=== PATIENT | male | born 1990 | race African-American/Black ===

== ENCOUNTER 2020-03-14 16:30 | Emergency (ER) | payer SELFPAY ==
[~2020-03-14] VITALS: Ht 172.7 cm; Wt 79.4 kg
== END 2020-03-14 18:27 | disposition home or self-care (01) ==
LOC: ED 16:30
DX: S29.012A Strain of muscle and tendon of back wall of thorax, initial encounter (principal); X50.9XXA Other and unspecified overexertion or strenuous movements or postures, initial encounter; F17.200 Nicotine dependence, unspecified, uncomplicated
CPT/HCPCS: 72070; 99283-25

== ENCOUNTER 2022-04-24 12:51 | Emergency (ER) | payer SELFPAY ==
[~2022-04-24] VITALS: Ht 172.7 cm; Wt 79.4 kg
== END 2022-04-24 16:53 | disposition home or self-care (01) ==
LOC: ED 12:51
DX: I10 Essential (primary) hypertension (principal); F17.200 Nicotine dependence, unspecified, uncomplicated
CPT/HCPCS: 99283

== ENCOUNTER 2022-07-24 16:37 | Emergency (ER) | payer OTHER ==
[~2022-07-24] VITALS: Ht 172.7 cm; Wt 83.5 kg
== END 2022-07-24 19:32 | disposition home or self-care (01) ==
LOC: ED 16:37
DX: T62.8X1A Toxic effect of other specified noxious substances eaten as food, accidental (unintentional), initial encounter (principal); H10.212 Acute toxic conjunctivitis, left eye; F17.200 Nicotine dependence, unspecified, uncomplicated
CPT/HCPCS: 99283